=== PATIENT | male | born 2000 | race Caucasian/White ===

== ENCOUNTER 2018-09-17 21:52 | Emergency (ER) | payer OTHER ==
--- NOTE | 2018-09-17 22:00 | EDPHY ---
H & P Time Seen by Provider: 09/17/18 22:00 HPI/ROS: HPI CHIEF COMPLAINT: Allergic reaction HISTORY OF PRESENT ILLNESS: 18-year-old male, history of nut allergy, presents emergency room after was eating a steak House with his mom is mom is visiting from out of town for his fraternity "mom's weekend". Patient states he ate some calamine and had some sauce on top of in possibly and not in it. After eating this he started developing redness to his skin, feeling flushed. And developed urticaria. No trouble swelling, no trouble breathing. His mom administered epinephrine pen. Then they drove here to the emergency room. He arrives to emergency room hemodynamically stable, has urticaria diffusely flushed skin. No stridor, no wheezing, no trouble breathing. Past Medical History: Denies significant medical history Past Surgical History: Denies significant surgical history Social History: Denies drugs alcohol tobacco. [employer] student. Family History: Noncontributory ROS REVIEW OF SYSTEMS: 10 Systems were reviewed and negative with the exception of the elements mentioned in the history of present illness. Exam Constitutional triage nursing summary reviewed, vital signs reviewed, awake/ alert. Eyes normal conjunctivae and sclera, EOMI, PERRLA. HENT posterior pharynx unremarkable, normal inspection, atraumatic, moist mucus membranes, no epistaxis, neck supple/ no meningismus, no raccoon eyes. Respiratory clear to auscultation bilaterally, normal breath sounds, no respiratory distress, no wheezing. Cardiovascular rate normal, regular rhythm, no murmur, no edema, distal pulses normal. Gastrointestinal soft, non-tender, no rebound, no guarding, normal bowel sounds, no distension, no pulsatile mass. Genitourinary no CVA tenderness. Musculoskeletal no midline vertebral tenderness, full range of motion, no calf swelling, no tenderness of extremities, no meningismus, good pulses, neurovascularly intact. Skin diffuse urticaria red scan. Neurologic awake, alert and oriented x 3, AAOx3, moves all 4 extremities equally, motor intact, sensory intact, CN II-XII intact, normal cerebellar, normal vision, normal speech. Psychiatric normal mood/affect. Heme/Lymph/Immune no lymphadenopathy. Differential Diagnosis: Includes but is not limited to in a particular order anaphylaxis, severe allergic reaction Medical Decision Making: Plan for this patient he did receive epinephrine prior to arrival through epinephrine pen in his left thigh by his mom. Plan will be for IV establishment IV fluid bolus IV Benadryl IV Solu-Medrol IV Pepcid , close observation. Re-dose epinephrine if need be. Re-evaluation: 0234: Patient re-evaluated this time resting comfortably. No acute distress. No further progression of allergic reaction is been monitored here for 5 hr and has done really well. He is urticaria and flushed red skin has completely resolved. He denies any complaints. No trouble breathing, no trouble swelling , no vomiting, no GI upset. Patient like to go home. Mom at bedside would like to take him home. We discussed return precautions return emergency room if he develops worsening symptoms questions or concerns or recurrent large reaction. I did discuss rebound allergic reaction precautions with him in his mom at bedside they understand. Source: Patient Constitutional: Initial Vital Signs Temperature (C) 36.7 C 09/17/18 21:58 Heart Rate 102 H 09/17/18 21:58 Respiratory Rate 26 H 09/17/18 21:58 Blood Pressure 153/97 H 09/17/18 21:58 O2 Sat (%) 95 09/17/18 21:58 O2 Delivery Mode Room Air Allergies/Adverse Reactions: peanut Allergy (Verified 09/17/18 22:08) sesame seed Allergy (Verified 09/17/18 22:08) Home Medications: Medication Instructions Recorded EPINEPHrine [Epipen 0.3 MG] 0.3 mg IM ONCE #2 syr 09/17/18 Epipen Kit 09/17/18 Famotidine [Pepcid 20 MG (*)] 20 mg PO BID #6 tab 09/17/18 diphenhydrAMINE [Benadryl 25 MG 25 mg PO BID #6 tab 09/17/18 (*)] predniSONE 60 mg PO DAILY #9 tab 09/17/18 Medical Decision Making - Data Points Laboratory Results: Laboratory Results 09/17/18 23:31 09/17/18 23:31 09/17/18 09/17/18 23:31 23:31 WBC 14.14 10^3/uL H 10^3/uL (3.80-9.50) RBC 5.18 10^6/uL 10^6/uL (4.40-6.38) Hgb 15.2 g/dL g/dL (13.7-17.5) Hct 44.8 % % (40.0-51.0) MCV 86.5 fL fL (81.5-99.8) MCH 29.3 pg pg (27.9-34.1) MCHC 33.9 g/dL g/dL (32.4-36.7) RDW 12.2 % % (11.5-15.2) Plt Count 282 10^3/uL 10^3/uL (150-400) MPV 9.5 fL fL (8.7-11.7) Neut % (Auto) 75.9 % H % (39.3-74.2) Lymph % (Auto) 17.9 % % (15.0-45.0) [place] % (Auto) 4.5 % % (4.5-13.0) Eos % (Auto) 1.1 % % (0.6-7.6) Baso % (Auto) 0.2 % L % (0.3-1.7) Nucleat RBC Rel Count 0.0 % % (0.0-0.2) Absolute Neuts (auto) 10.74 10^3/uL H 10^3/uL (1.70-6.50) Absolute Lymphs (auto) 2.53 10^3/uL 10^3/uL (1.00-3.00) Absolute Monos (auto) 0.63 10^3/uL 10^3/uL (0.30-0.80) Absolute Eos (auto) 0.15 10^3/uL 10^3/uL (0.03-0.40) Absolute Basos (auto) 0.03 10^3/uL 10^3/uL (0.02-0.10) Absolute Nucleated RBC 0.00 10^3/uL 10^3/uL (0-0.01) Immature Gran % 0.4 % % (0.0-1.1) Immature Gran # 0.06 10^3/uL 10^3/uL (0.00-0.10) Sodium 139 mEq/L mEq/L (135-145) Potassium 4.1 mEq/L mEq/L (3.5-5.2) Chloride 106 mEq/L mEq/L (97-110) Carbon Dioxide 23 mEq/l mEq/l (22-31) Anion Gap 10 mEq/L mEq/L (6-14) BUN 18 mg/dL mg/dL (7-23) Creatinine 0.9 mg/dL mg/dL (0.7-1.3) Estimated GFR > 60 Glucose 93 mg/dL mg/dL (70-100) Calcium 8.9 mg/dL mg/dL (8.5-10.4) Medications Given: Discontinued Medications Diphenhydramine HCl (Benadryl Injection) 50 mg IVP EDNOW ONE Stop: 09/17/18 22:04 Last Admin: 09/17/18 22:08 Dose: 50 mg Famotidine (Pepcid) 20 mg IVP EDNOW ONE Stop: 09/17/18 22:04 Last Admin: 09/17/18 22:08 Dose: 20 mg Sodium Chloride (Ns) 1,000 mls @ 0 mls/hr IV EDNOW ONE; Wide Open PRN Reason: Protocol Stop: 09/17/18 22:03 Last Admin: 09/17/18 22:07 Dose: 1,000 mls Methylprednisolone Sodium Succinate (Solu-Medrol) 125 mg IVP EDNOW ONE Stop: 09/17/18 22:04 Last Admin: 09/17/18 22:08 Dose: 125 mg Departure - Departure Disposition: Home, Routine, Self-Care Clinical Impression: Acute anaphylaxis, Allergic reaction Condition: Fair Instructions: Urticaria (ED), Food Allergy (ED), Anaphylaxis (ED), Allergies ( ED) Additional Instructions: 1. RETURN TO THE ER IF A RECURRENCE OF YOUR SYMPTOMS 2. STEROIDS, PEPCID, BENADRYL PRESCRIBED 3. EPIPEN. 4. RETURN IF WORSE. Prescriptions: diphenhydrAMINE [Benadryl 25 MG (*)] 25 mg PO BID #6 tab EPINEPHrine [Epipen 0.3 MG] 0.3 mg IM ONCE #2 syr Famotidine [Pepcid 20 MG (*)] 20 mg PO BID #6 tab predniSONE 60 mg PO DAILY #9 tab
[2018-09-17] MEDS ORDERED: NS 1,000 ML IV ONE (22:02)
[2018-09-17] MEDS ORDERED: FAMOTIDINE 20 MG/2 ML SDV IVP ONE (22:03)
[2018-09-17] MEDS ORDERED: methylPREDNISolone SOD SUCC 125 MG/2 ML VIAL IVP ONE (22:03)
[2018-09-17 23:37] LABS: PLATELET COUNT 282 10^3/uL (150-400)
[2018-09-18 03:07] VITALS: BP 122/66
== END 2018-09-18 03:09 | disposition home or self-care (01) ==
DX: T78.2XXA Anaphylactic shock, unspecified, initial encounter (principal); T78.40XA Allergy, unspecified, initial encounter; E86.9 Volume depletion, unspecified
CPT/HCPCS: 96374; J1200; J2930